=== PATIENT | male | born 1980 | race Caucasian/White ===

== ENCOUNTER 2017-11-03 07:14 | Emergency (ER) | payer OTHER ==
[~2017-11-03] VITALS: Ht 185.4 cm; Wt 127.3 kg
[2017-11-03 07:19] VITALS: Ht 185.4 cm; Wt 127.3 kg
[2017-11-03] MEDS ORDERED: SEROQUEL50 MG PO (07:20)
[2017-11-03] MEDS ORDERED: BUSPAR10 MG PO (07:20)
[2017-11-03 07:37] LABS: BASOPHILS 0.1 % (0-2); EOSINOPHILS 0.1 % (0-7); HEMOGLOBIN 15.1 g/dL (13.5-17.5); IMMATURE GRANULOCYTES 0.3 % (0-5); LYMPHOCYTES 9.7 % (15-50); MCH 30.8 pg (26.0-34.0); MCV 85.5 fL (80.0-100.0); MEAN PLATELET VOLUME 10.4 fL (7.4-10.4); MONOCYTES 4.3 % (2-11); NEUTROPHILS 85.5 % (40-80); PLATELET COUNT 226 10x3/uL (130-400); RBC 4.91 10x6/uL (4.20-6.10); WBC 13.8 10x3/uL (4.8-10.8)
[2017-11-03 07:38] LABS: APPEARANCE CLEAR (CLEAR); BILIRUBIN NEGATIVE (NEGATIVE); COLOR YELLOW (YELLOW); GLUCOSE 50 mg/dL (NEGATIVE); KETONE NEGATIVE (NEGATIVE); NITRITE NEGATIVE (NEGATIVE); PH 6.5 (5.0-6.0); PROTEIN NEGATIVE (NEGATIVE); UROBILINOGEN NORMAL (NORMAL)
[2017-11-03 07:43] LABS: BACTERIA FEW /hpf (NONE SEEN); EPITHELIAL CELLS OCC /hpf (0-5); WHITE CELLS - URINE 0-5 /hpf (0-5)
[2017-11-03 07:44] LABS: HYALINE CAST RARE /lpf (NONE SEEN)
[2017-11-03 07:47] LABS: UDS - AMPHET NEGATIVE QUAL (NEGATIVE); UDS - BARB NEGATIVE QUAL (NEGATIVE); UDS - BENZO NEGATIVE QUAL (NEGATIVE); UDS - COCAINE POSITIVE QUAL (NEGATIVE); UDS - OPIATE NEGATIVE QUAL (NEGATIVE); UDS - PCP NEGATIVE QUAL (NEGATIVE); UDS - THC NEGATIVE QUAL (NEGATIVE)
[2017-11-03 07:56] LABS: ALBUMIN 4.6 g/dL (3.4-5.0); ALKALINE PHOSPHATASE 85 U/L (46-116); ALT (SGPT) 32 U/L (10-68); BILIRUBIN - TOTAL 0.55 mg/dL (0.2-1.3); CALC OSMOLALITY 285 mosm/kg (275-300); CARBON DIOXIDE 28.9 mmol/L (21.0-32.0); CHLORIDE - SERUM 104 mmol/L (98-107); CREATININE - SERUM 0.9 mg/dL (0.6-1.3); GLUCOSE 98 mg/dL (74-106); POTASSIUM - SERUM 3.5 mmol/L (3.5-5.1); PROTEIN - SERUM 8.3 g/dL (6.4-8.2); SODIUM 143 mmol/L (136-145); UREA NITROGEN 16 mg/dL (7-18); eGFR NON AFRICAN AMERICAN > 90 mL/min (90-120)
[2017-11-03 08:11] VITALS: BP 134/84
[2017-11-11 14:38] VITALS: Ht 185.4 cm; Wt 127.3 kg
== END 2017-11-05 06:18 ==
LOC: D.ER 07:14
PROVIDERS: Family Medicine
DX: R45.851 Suicidal ideations (principal); F31.9 Bipolar disorder, unspecified; F14.10 Cocaine abuse, uncomplicated

== ENCOUNTER 2017-11-11 05:47 | Inpatient (IN) | payer OTHER ==
[~2017-11-11] VITALS: Ht 185.4 cm; Wt 101.8 kg
[~2017-11-11 05:47] MED LIST: BUSPAR10 MG PO; SEROQUEL50 MG PO
[2017-11-11 06:00] LABS: BASOPHILS 0.2 % (0-2); EOSINOPHILS 0.1 % (0-7); HEMATOCRIT 46.5 % (42.0-54.0); IMMATURE GRANULOCYTES 0.3 % (0-5); LYMPHOCYTES 15.9 % (15-50); MCH 30.9 pg (26.0-34.0); MCHC 36.6 g/dL (31.0-37.0); MCV 84.5 fL (80.0-100.0); MEAN PLATELET VOLUME 10.2 fL (7.4-10.4); MONOCYTES 9.4 % (2-11); NEUTROPHILS 74.1 % (40-80); PLATELET COUNT 244 10x3/uL (130-400); RDW 12.9 % (11.5-14.5); WBC 15.5 10x3/uL (4.8-10.8)
[2017-11-11 06:18] LABS: ALBUMIN 5.3 g/dL (3.4-5.0); ALKALINE PHOSPHATASE 83 U/L (46-116); ALT (SGPT) 45 U/L (10-68); CALC OSMOLALITY 293 mosm/kg (275-300); CALCIUM 9.4 mg/dL (8.5-10.1); CHLORIDE - SERUM 99 mmol/L (98-107); CREATININE - SERUM 3.6 mg/dL (0.6-1.3); GLUCOSE 117 mg/dL (74-106); POTASSIUM - SERUM 3.5 mmol/L (3.5-5.1); PROTEIN - SERUM 9.3 g/dL (6.4-8.2); SODIUM 141 mmol/L (136-145); UREA NITROGEN 47 mg/dL (7-18); eGFR NON AFRICAN AMERICAN 21 mL/min (90-120)
[2017-11-11 06:39] LABS: CREATINE KINASE 635 UL (21-232)
[2017-11-11 06:44] LABS: CKMB 8.2 U/L (0.0-3.6)
[2017-11-11 07:07] LABS: UDS - AMPHET POSITIVE QUAL (NEGATIVE); UDS - BARB NEGATIVE QUAL (NEGATIVE); UDS - BENZO NEGATIVE QUAL (NEGATIVE); UDS - COCAINE POSITIVE QUAL (NEGATIVE); UDS - OPIATE NEGATIVE QUAL (NEGATIVE); UDS - PCP NEGATIVE QUAL (NEGATIVE); UDS - THC NEGATIVE QUAL (NEGATIVE)
[2017-11-11 07:19] LABS: APPEARANCE CLOUDY (CLEAR); BILIRUBIN NEGATIVE (NEGATIVE); COLOR DK YELLOW (YELLOW); GLUCOSE NEGATIVE (NEGATIVE); KETONE SMALL mg/dL (NEGATIVE); NITRITE NEGATIVE (NEGATIVE); PROTEIN 3+ mg/dL (NEGATIVE); SPECIFIC GRAVITY 1.025 (1.005-1.020); UROBILINOGEN NORMAL (NORMAL); WHITE CELLS - URINE 0-5 /hpf (0-5)
[2017-11-11 07:20] LABS: BACTERIA FEW /hpf (NONE SEEN); EPITHELIAL CELLS 0-5 /hpf (0-5); MUCUS <1+ /lpf (NONE SEEN); SPERMATOZOA RARE /hpf (NONE SEEN)
[2017-11-11 08:00] VITALS: BP 151/101
[2017-11-11 08:45] LABS: PHOSPHOROUS 6.1 mg/dL (2.5-4.9)
[2017-11-11 09:00] VITALS: BP 163/92
[2017-11-11 14:15] VITALS: BP 163/92; BMI 29.6
[2017-11-11 14:38] VITALS: BP 163/92; Ht 185.4 cm; Wt 101.8 kg
[2017-11-11 21:56] VITALS: BP 106/66
[2017-11-12 05:42] VITALS: BP 105/60
[2017-11-12 05:44] LABS: BASOPHILS 0.6 % (0-2); EOSINOPHILS 2.2 % (0-7); HEMATOCRIT 40.8 % (42.0-54.0); HEMOGLOBIN 14.4 g/dL (13.5-17.5); IMMATURE GRANULOCYTES 0.2 % (0-5); LYMPHOCYTES 24.2 % (15-50); MCH 30.3 pg (26.0-34.0); MCHC 35.3 g/dL (31.0-37.0); MCV 85.9 fL (80.0-100.0); MEAN PLATELET VOLUME 10.2 fL (7.4-10.4); MONOCYTES 8.5 % (2-11); NEUTROPHILS 64.3 % (40-80); RBC 4.75 10x6/uL (4.20-6.10); RDW 12.8 % (11.5-14.5)
[2017-11-12 06:22] LABS: PLATELET COUNT 192 10x3/uL (130-400)
[2017-11-12 06:42] LABS: ALKALINE PHOSPHATASE 65 U/L (46-116); ALT (SGPT) 35 U/L (10-68); BILIRUBIN - TOTAL 0.92 mg/dL (0.2-1.3); CALCIUM 7.8 mg/dL (8.5-10.1); CARBON DIOXIDE 26.3 mmol/L (21.0-32.0); CHLORIDE - SERUM 106 mmol/L (98-107); GLUCOSE 104 mg/dL (74-106); MAGNESIUM - SERUM 1.8 mg/dL (1.8-2.4); POTASSIUM - SERUM 3.6 mmol/L (3.5-5.1); SODIUM 139 mmol/L (136-145)
[2017-11-12 06:45] LABS: ALBUMIN 3.3 g/dL (3.4-5.0); CALC OSMOLALITY 281 mosm/kg (275-300); CREATINE KINASE 262 UL (21-232); PROTEIN - SERUM 6.5 g/dL (6.4-8.2); UREA NITROGEN 24 mg/dL (7-18); eGFR NON AFRICAN AMERICAN 90 mL/min (90-120)
[2017-11-12 06:46] LABS: CKMB 3.1 U/L (0.0-3.6)
[2017-11-12 08:47] VITALS: BP 106/57
[2017-11-12 11:26] VITALS: BP 122/70
[2017-11-12 15:10] VITALS: BP 126/72
== END 2017-11-12 15:29 | disposition home or self-care (01) | DRG 683 ==
LOC: D.ER 05:47 → D.EDHOLD 09:05 → D.M2 09:05
PROVIDERS: Emergency Medicine; Family Medicine
DX: N17.9 Acute kidney failure, unspecified (principal); M62.82 Rhabdomyolysis; F15.10 Other stimulant abuse, uncomplicated; F14.10 Cocaine abuse, uncomplicated

== ENCOUNTER 2018-11-10 16:29 | Emergency (ER) | payer MEDICAID ==
[~2018-11-10] VITALS: Ht 180.3 cm; Wt 90.9 kg
[2018-11-10 16:36] VITALS: Ht 180.3 cm; Wt 90.9 kg
[2018-11-10 17:11] LABS: BASOPHILS 0.3 % (0-2); EOSINOPHILS 0.2 % (0-7); HEMOGLOBIN 13.5 g/dL (13.5-17.5); IMMATURE GRANULOCYTES 0.4 % (0-5); LYMPHOCYTES 8.8 % (15-50); MCH 29.5 pg (26.0-34.0); MCHC 34.6 g/dL (31.0-37.0); MCV 85.3 fL (80.0-100.0); MEAN PLATELET VOLUME 9.1 fL (7.4-10.4); MONOCYTES 7.7 % (2-11); NEUTROPHILS 82.6 % (40-80); PLATELET COUNT 226 10x3/uL (130-400); RBC 4.57 10x6/uL (4.20-6.10); WBC 15.7 10x3/uL (4.8-10.8)
--- NOTE | 2018-11-10 17:31 | NUR ---
PT ADMITS TO ATTEMPTING TO HARM SELF 10 YEARS AGO BUT VEHEMENTLY DENIES ANY DESIRE TO HARM SELF AT THIS TIME. PATIENT STATES,"THAT WAS 10 YEARS AGO. I LOVE MYSELF NOW." DR AQUINO NOTIFIED AND REVIEWED PT'S BEHAVIOR AND ASSESSMENT RESULTS. PT IS A LOW RISK PER DR AQUINO. DR AQUINO STATED TO GIVE RESOURCES TO PT AT TIME OF DISCHARGE. NO FURTHER ORDERS AT THIS TIME. RESOURCES REVIEWED WITH PT AND HE VERBALIZED UNDERSTANDING.
[2018-11-10 17:34] LABS: ALBUMIN 4.4 g/dL (3.4-5.0); ANION GAP 18.8 mmol/L (8-16); BILIRUBIN - TOTAL 1.07 mg/dL (0.2-1.3); CALCIUM 9.2 mg/dL (8.5-10.1); CARBON DIOXIDE 24.5 mmol/L (21.0-32.0); CREATININE - SERUM 1.5 mg/dL (0.6-1.3); POTASSIUM - SERUM 3.3 mmol/L (3.5-5.1); PROTEIN - SERUM 8.2 g/dL (6.4-8.2)
[2018-11-10 19:34] LABS: APPEARANCE CLEAR (CLEAR); COLOR YELLOW (YELLOW)
[2018-11-10 19:35] LABS: BILIRUBIN NEGATIVE (NEGATIVE); GLUCOSE NEGATIVE (NEGATIVE); KETONE NEGATIVE (NEGATIVE); NITRITE NEGATIVE (NEGATIVE); PROTEIN TRACE mg/dL (NEGATIVE); SPECIFIC GRAVITY 1.015 (1.005-1.020); UROBILINOGEN NORMAL (NORMAL)
[2018-11-10 19:37] LABS: RED CELLS - URINE 0-5 /hpf (0-5); WHITE CELLS - URINE OCC /hpf (0-5)
[2018-11-10 22:00] VITALS: BP 132/91
== END 2018-11-10 22:00 | disposition home or self-care (01) ==
LOC: D.ER 16:29
PROVIDERS: Emergency Medicine
DX: T67.5XXA Heat exhaustion, unspecified, initial encounter (principal); X58.XXXA Exposure to other specified factors, initial encounter; Y93.89 Activity, other specified; Y92.89 Other specified places as the place of occurrence of the external cause; R79.89 Other specified abnormal findings of blood chemistry; E86.0 Dehydration

== ENCOUNTER 2019-05-14 10:47 | Inpatient (IN) | payer OTHER ==
[~2019-05-14] VITALS: Ht 180.3 cm; Wt 89.7 kg
[2019-05-14 11:51] LABS: BASOPHILS 0.3 % (0-2); EOSINOPHILS 1.2 % (0-7); HEMOGLOBIN 13.3 g/dL (13.5-17.5); IMMATURE GRANULOCYTES 0.3 % (0-5); LYMPHOCYTES 6.9 % (15-50); MCH 29.3 pg (26.0-34.0); MCHC 33.3 g/dL (31.0-37.0); MCV 88.1 fL (80.0-100.0); NEUTROPHILS 85.3 % (40-80); PLATELET COUNT 250 10x3/uL (130-400); RBC 4.54 10x6/uL (4.20-6.10); RDW 13.6 % (11.5-14.5); WBC 17.7 10x3/uL (4.8-10.8)
[2019-05-14 12:01] LABS: INR 1.02 (0.85-1.17); PROTIME 13.4 SECONDS (11.6-15.0)
[2019-05-14 12:04] LABS: CALC OSMOLALITY 276 mosm/kg (275-300); CARBON DIOXIDE 32.6 mmol/L (21.0-32.0); CHLORIDE - SERUM 98 mmol/L (98-107); GLUCOSE 110 mg/dL (74-106); POTASSIUM - SERUM 3.7 mmol/L (3.5-5.1); SODIUM 138 mmol/L (136-145); UREA NITROGEN 12 mg/dL (7-18); eGFR NON AFRICAN AMERICAN 89 mL/min (90-120)
[2019-05-14 12:13] LABS: ALBUMIN 3.3 g/dL (3.4-5.0); ALKALINE PHOSPHATASE 90 U/L (30-120); ALT (SGPT) 16 U/L (10-68); BILIRUBIN - TOTAL 0.85 mg/dL (0.2-1.3); C-REACTIVE PROTEIN 13.4 mg/dL (0.0-0.9); PROTEIN - SERUM 7.2 g/dL (6.4-8.2)
[2019-05-14 12:14] LABS: TROPONIN-I < 0.017 ng/mL (0.000-0.060)
--- NOTE | 2019-05-14 13:06 | NUR ---
PT ARRIVED VIA STRECHER FROM ER. DENIES NEEDS OR PAIN AT THIS TIME. VSS EXCEPT 100.1 FEVER WHICH HAS ALREADY BEEN TREATED BY ER NURSE. DRESSING TO RIGHT AC, CDI. AXO X4. PT ORIENTED TO ROOM. RR EVEN AND UNLABORED. BED IN LOWEST POSITION. CALL LIGHT WITHIN REACH. WILL CONTINUE TO MONITOR.
[2019-05-14 13:13] VITALS: BP 176/107; BMI 27.9
[2019-05-14 13:36] VITALS: BP 167/95
[2019-05-14 16:00] VITALS: BP 159/81
--- NOTE | 2019-05-14 16:13 | NUR ---
SPOKE WITH PTs PARTS IDENTIFICATION TECHNICIAN PER PT REQUEST. MADE AWARE THAT PT WAS IN HOSPITAL.
--- NOTE | 2019-05-14 17:00 | NUR ---
DRESSING CAME OFF OF RIGHT AC. REDRESSED WITH KURLEX AND 4X4, CDI. DENIES FURTHER NEEDS OR PAIN AT THIS TIME
[2019-05-14 18:52] LABS: APTT 33.8 SECONDS (22.8-39.4)
[2019-05-14 18:53] LABS: D-DIMER-QUANTITATIVE 1.49 ug/mLFEU (0.20-0.54)
--- NOTE | 2019-05-14 19:20 | NUR ---
REPORT RECEIVED, WILL CONTINUE POC. PATIENT IS AAOX4, LYING IN SEMI-FOWLERS POSITION. NO S/S OF DISTRESS OBSERVED, RR EVEN AND UNLABORED ON ROOM AIR. PIV TO LT FA, PATENT, DRSG C/D/I. PATIENT DENIES NEEDS AT THIS TIME. CL IN REACH, BED LOCKED AND LOWERED. WILL CTM.
[2019-05-14 19:21] LABS: CREATINE KINASE 26 UL (21-232); MAGNESIUM - SERUM 1.7 mg/dL (1.8-2.4)
[2019-05-14 19:22] LABS: TROPONIN-I < 0.017 ng/mL (0.000-0.060)
[2019-05-14 21:00] VITALS: BP 148/79
--- NOTE | 2019-05-15 00:29 | NUR ---
PT REQUESTED JUICE, APPLE JUICE GIVEN. LAB AT BEDSIDE DRAWING CARDIAC ENZYMES. HUNG IV ABX. PATIENT DENIES FURTHER NEEDS AT THIS TIME.
[2019-05-15 00:45] LABS: CKMB 0.2 U/L (0.0-3.6); CREATINE KINASE 22 UL (21-232); TROPONIN-I < 0.017 ng/mL (0.000-0.060)
[2019-05-15 01:18] VITALS: BP 154/80
--- NOTE | 2019-05-15 03:46 | NUR ---
I have reviewed this patient and I concur with the Shift Assessment completed by the Licensed Practical Nurse today this shift.
[2019-05-15 04:42] VITALS: BP 138/80
[2019-05-15 05:14] LABS: BASOPHILS 0.4 % (0-2); HEMATOCRIT 38.3 % (42.0-54.0); HEMOGLOBIN 12.6 g/dL (13.5-17.5); IMMATURE GRANULOCYTES 0.2 % (0-5); LYMPHOCYTES 11.6 % (15-50); MCHC 32.9 g/dL (31.0-37.0); MCV 88.2 fL (80.0-100.0); MEAN PLATELET VOLUME 9.2 fL (7.4-10.4); MONOCYTES 6.9 % (2-11); NEUTROPHILS 76.9 % (40-80); PLATELET COUNT 218 10x3/uL (130-400); RBC 4.34 10x6/uL (4.20-6.10); RDW 13.5 % (11.5-14.5); WBC 13.4 10x3/uL (4.8-10.8)
[2019-05-15 05:54] LABS: ALBUMIN 2.6 g/dL (3.4-5.0); ALKALINE PHOSPHATASE 68 U/L (30-120); ALT (SGPT) 14 U/L (10-68); BILIRUBIN - TOTAL 0.63 mg/dL (0.2-1.3); CALC OSMOLALITY 275 mosm/kg (275-300); CALCIUM 8.3 mg/dL (8.5-10.1); CARBON DIOXIDE 29.6 mmol/L (21.0-32.0); CHLORIDE - SERUM 102 mmol/L (98-107); CKMB 0.2 U/L (0.0-3.6); CREATINE KINASE 23 UL (21-232); CREATININE - SERUM 0.9 mg/dL (0.6-1.3); GLUCOSE 111 mg/dL (74-106); POTASSIUM - SERUM 3.8 mmol/L (3.5-5.1); PROTEIN - SERUM 6.6 g/dL (6.4-8.2); SODIUM 138 mmol/L (136-145); UREA NITROGEN 11 mg/dL (7-18); eGFR NON AFRICAN AMERICAN > 90 mL/min (90-120)
[2019-05-15 06:14] LABS: TROPONIN-I < 0.017 ng/mL (0.000-0.060)
[2019-05-15 08:00] VITALS: BP 143/79
[2019-05-15 10:47] LABS: APPEARANCE CLEAR (CLEAR); BILIRUBIN NEGATIVE (NEGATIVE); COLOR STRAW (YELLOW); GLUCOSE NEGATIVE (NEGATIVE); KETONE NEGATIVE (NEGATIVE); NITRITE NEGATIVE (NEGATIVE); PROTEIN NEGATIVE (NEGATIVE); SPECIFIC GRAVITY 1.005 (1.005-1.020); UROBILINOGEN NORMAL (NORMAL)
--- NOTE | 2019-05-15 11:22 | NUR ---
PT EDUCATION GIVEN TO PT ON PURPOSE OF SCD. PT REFUSES SCD'S AT THIS TIME. WILL CONTINUE TO MONITOR.
[2019-05-15 12:00] VITALS: BP 129/75
[2019-05-15 16:00] VITALS: BP 184/77
--- NOTE | 2019-05-15 16:47 | NUR ---
RESTS IN BED WITH CALL LIGHT IN REACH. IV PATENT. WILL MONITOR NEEDS.
--- NOTE | 2019-05-15 17:51 | MORECARE ---
CASE MANAGEMENT DISCHARGE SUMMARY PATIENT: RAUL VARGAS UNIT: [id number] ADM DATE: 05/14/19 AGE: 39 : 82 SEX: M ROOM/BED: D.1437 AUTHOR: ALLEN,DOC PHYSICIAN: REFERRING PHYSICIAN: PIYUSH REDDY DO DATE OF SERVICE: 05/15/19 Discharge Plan Patient Name: RAUL VARGAS Facility: [facility]:[place] : 1980 Planned Disposition: Home Anticipated Discharge Date: 05/16/19 Discharge Date: Expected LOS: 2 Initial Reviewer: [email or web address] Initial Review Date: 05/08/2019 Generated: 05/15/19 6:51 pm Comments DCP- Discharge Planning Updated by [email or web address]: Tom Tiwari on 05/15/19 4:[address] Patient Name: RAUL VARGAS Admission Status: ER Accout number: [id number] Admission Date: 05-14-2019 : 1980 Admission Diagnosis: Attending: PIYUSH REDDY Current LOS: 1 Anticipated DC Date: 05-16-2019 Planned Disposition: Home Primary Insurance: NOVASYS MANAGED MEDICAID Discharge Planning Comments: CM RECEIVED ORDER THAT PT IS HOMELESS. CM MET WITH PT IN ROOM TO DISCUSS DISCHARGE PLANNING AND NEEDS. PT REPORTS LIVING ON THE "STREETS" AND IS INDEPENDENT IN HIS CARE. PT HAS NO MEDICAL EQUIPMENT AND NO PROVIDER PREFERENCE. PT IS AWARE OF LOCATION OF [facility] AND THE SERVICES. PT IS AWARE OF SERVICES AND USES THE [facility] AND [facility] FOR FOOD. PT HAS NO INCOME. PT REPORTS BEING ON [place] AND IS WAITING ON BED AT THE [facility] DUE TO [facility] VIOLATION FOR FAILURE TO REPORT. PT REPORTS TO [facility] COPPER DAILY AND THEY ARE AWARE OF PT'S BEING IN HOSPITAL NOW. CM DISCUSSED AVAILABILITY OF HOME HEALTH, REHAB SERVICES AND MEDICAL EQUIPMENT. PT DENIES DISCHARGE NEEDS, REPORTS NEEDING NO ASSISTANCE AT DISCHARGE. CM OFFERED PT BUS PASS HE HAS ALL OF HIS BELONGINGS AND NEEDS TO GET BACK TO [facility]. PT ACCEPTED. CM PROVIDED PT WITH BUS PASS AND CITY BUS ROUTE MAP. PT WILL RETURN TO HOMELESSNESS AT DISCHARGE. HE IS AWARE OF [facility] INTERMEDIATE IN [place] AND HAS AN IDENTIFICATION TO GAIN ACCESS TO INTERMEDIATE. CM EDUCATED PT ON NEEDING TO BE SOBER UPON ARRIVAL FOR [place] IN EVENINGS. PT HAS BUS PASS PROVIDED BY [employer]. Pals Specialist: Tom Tiwari DCPIA - Discharge Planning Initial Assessment Updated by [id number]: Tom Tiwari on 05/15/19 5:44 pm * Is the patient Alert and Oriented? Yes * How many steps to enter\\exit or inside your home? NONE * PCP NONE * Pharmacy [facility] [place] * Preadmission Environment Homeless * Other Environment [address]ETS * Facility Name NONE * ADLs Independent * Equipment None * Other Equipment NO MEDICAL EQUIPMENT PROVIDER PREFERENCE * List name and contact numbers for known caregivers / representatives who currently or will assist patient after discharge: SATISH TYLER, MOTHER, LIVES IN [facility], PHONE NUMBER UNKNOWN * Verbal permission to speak to the caregivers and representatives has been obtained from the patient. N/A * Community resources currently utilized Other * Please name any agencies selected above. [facility] - MANDATORY REPORTING TO [place] [facility] OFFICE * Additional services required to return to the preadmission environment? No * Can the patient safely return to the preadmission environment? Yes * Has this patient been hospitalized within the prior 30 days at any hospital? No Patient Name: RAUL VARGAS Page [phone] at 1751 All edits/amendments must be made on the electronic document DICTATION DATE: 05/15/191750 CAR SUPPLIER: STAN 05/15/191750 RPT#: [id number] IA DATE: STATUS: ADM IN [facility] [address] [place] [address] END OF REPORT
[2019-05-15 20:30] VITALS: BP 124/70
--- NOTE | 2019-05-15 21:15 | NUR ---
PATIENT REQUESTING SHOWER. DRESSING TO RIGHT ARM LOOSE WITH DRAINAGE NOTED. ARM WRAPPED FOR SHOWER. TOLERATED SHOWER WELL. RIGHT ARM CLEANED [facility] WOUND CLEANSER. YELLOW DRAINAGE NOTED DRAINING FROM INCISION. NON ADHERENT DRESSING,4X4 AND BERNY WRAP APPLIED TO RIGHT ARM.NO COMPLAINTS VOICED. IV TO LFA INTACT WITH NO REDNESS OR EDEMA NOTED. CL IN REACH
[2019-05-16 00:30] VITALS: BP 132/58
[2019-05-16 04:30] VITALS: BP 118/69
[2019-05-16 04:58] LABS: BASOPHILS 0.5 % (0-2); EOSINOPHILS 10.3 % (0-7); HEMATOCRIT 35.4 % (42.0-54.0); HEMOGLOBIN 11.4 g/dL (13.5-17.5); IMMATURE GRANULOCYTES 0.3 % (0-5); LYMPHOCYTES 20.7 % (15-50); MCH 28.5 pg (26.0-34.0); MCHC 32.2 g/dL (31.0-37.0); MCV 88.5 fL (80.0-100.0); MEAN PLATELET VOLUME 9.3 fL (7.4-10.4); MONOCYTES 9.1 % (2-11); NEUTROPHILS 59.1 % (40-80); PLATELET COUNT 235 10x3/uL (130-400); RDW 13.4 % (11.5-14.5)
[2019-05-16 05:03] LABS: WBC 7.9 10x3/uL (4.8-10.8)
[2019-05-16 05:23] LABS: CALC OSMOLALITY 280 mosm/kg (275-300); CALCIUM 8.3 mg/dL (8.5-10.1); CARBON DIOXIDE 33.1 mmol/L (21.0-32.0); CHLORIDE - SERUM 104 mmol/L (98-107); CREATININE - SERUM 0.9 mg/dL (0.6-1.3); GLUCOSE 112 mg/dL (74-106); MAGNESIUM - SERUM 2.1 mg/dL (1.8-2.4); POTASSIUM - SERUM 3.7 mmol/L (3.5-5.1); SODIUM 140 mmol/L (136-145); eGFR NON AFRICAN AMERICAN > 90 mL/min (90-120)
[2019-05-16 05:28] LABS: UREA NITROGEN 16 mg/dL (7-18)
--- NOTE | 2019-05-16 06:53 | NUR ---
I have reviewed this patient and I concur with the Shift Assessment completed by the Licensed Practical Nurse today this shift.
[2019-05-16 08:00] VITALS: BP 140/78
[2019-05-16 12:42] VITALS: Ht 180.3 cm; Wt 89.7 kg
--- NOTE | 2019-05-16 13:46 | NUR ---
I have reviewed this patient and I concur with the Shift Assessment completed by the Licensed Practical Nurse today this shift.
[2019-05-16 16:00] VITALS: BP 119/75
--- NOTE | 2019-05-16 19:00 | NUR ---
ALERT AND ORIENTED. LAYING IN LOW FOWLERS POSITION. DENIES PAIN AND DISCOMFORT AT THIS TIME. DRESSING TO THE RIGHT AC/FOREARM AREA. PATIENT STATES "THE SWELLING HAS GONE DOWN A LOT." SIDE BY SIDE COMPARISON OF ARMS AND RIGHT ARM IS SLIGHTLY SWOLLEN TO INSPECTION, WARM TO TOUCH, NO REDNESS NOTED AT THIS TIME. PATIENT HAS A LEFT FOREARM IV THAT IS PATENT AND INFUSING NORMAL SALINE AT 100 ML/HR. SPOKE WITH PATIENT ABOUT PLAN OF CARE THIS EVENING ORDERED BY PHYSICIANS AND UPCOMING MEDICATIONS. PATIENT VERBALIZES UNDERSTANDING. REQUESTS SNACKS AT THIS TIME. PROVIDED. DENIES FURTHER NEEDS AT THIS TIME. CALL LIGHT IN REACH OF PATIENT. CPOC.
[2019-05-16 21:30] VITALS: BP 119/64
[2019-05-17 00:30] VITALS: BP 114/67
--- NOTE | 2019-05-17 01:51 | NUR ---
PATIENT RESTING ON RIGHT SIDE WITH NO SIGNS OR SYMPTOMS OF DISTRESS AT THIS TIME. IV REMAINS PATENT, NON SWOLLEN, AND NO REDNESS AT INSERTION SITE. CALL LIGHT IN REACH. CPOC.
[2019-05-17 04:30] VITALS: BP 96/72
--- NOTE | 2019-05-17 04:36 | NUR ---
I have reviewed this patient and I concur with the Shift Assessment completed by the Licensed Practical Nurse today this shift.
[2019-05-17 04:59] LABS: BASOPHILS 0.6 % (0-2); EOSINOPHILS 11.6 % (0-7); HEMATOCRIT 35.6 % (42.0-54.0); HEMOGLOBIN 11.6 g/dL (13.5-17.5); IMMATURE GRANULOCYTES 0.6 % (0-5); LYMPHOCYTES 27.5 % (15-50); MCH 28.7 pg (26.0-34.0); MCHC 32.6 g/dL (31.0-37.0); MCV 88.1 fL (80.0-100.0); MEAN PLATELET VOLUME 9.2 fL (7.4-10.4); MONOCYTES 7.3 % (2-11); NEUTROPHILS 52.4 % (40-80); PLATELET COUNT 259 10x3/uL (130-400); RBC 4.04 10x6/uL (4.20-6.10); RDW 13.4 % (11.5-14.5); WBC 6.8 10x3/uL (4.8-10.8)
[2019-05-17 05:57] LABS: CALC OSMOLALITY 281 mosm/kg (275-300); CALCIUM 8.5 mg/dL (8.5-10.1); CARBON DIOXIDE 30.9 mmol/L (21.0-32.0); CHLORIDE - SERUM 104 mmol/L (98-107); CREATININE - SERUM 0.9 mg/dL (0.6-1.3); GLUCOSE 105 mg/dL (74-106); MAGNESIUM - SERUM 2.3 mg/dL (1.8-2.4); POTASSIUM - SERUM 3.8 mmol/L (3.5-5.1); SODIUM 141 mmol/L (136-145); UREA NITROGEN 16 mg/dL (7-18); eGFR NON AFRICAN AMERICAN > 90 mL/min (90-120)
[2019-05-17 08:00] VITALS: BP 129/75
[2019-05-17 16:00] VITALS: BP 127/73
[2019-05-17] MEDS ORDERED: SMZ-TMP DS TABL1 TAB PO (16:20)
--- NOTE | 2019-05-18 09:49 | MORECARE ---
CASE MANAGEMENT DISCHARGE SUMMARY PATIENT: RAUL VARGAS UNIT: [id number] ADM DATE: 05/14/19 AGE: 39 : 82 SEX: M ROOM/BED: D.8339 AUTHOR: ALLEN,DOC PHYSICIAN: REFERRING PHYSICIAN: PIYUSH REDDY DO DATE OF SERVICE: 05/18/19 Discharge Plan Patient Name: RAUL VARGAS Facility: [facility]:[place] : 1980 Planned Disposition: Home Anticipated Discharge Date: 05/17/19 Discharge Date: 05/17/2019 Expected LOS: 3 Initial Reviewer: [email or web address] Initial Review Date: 05/08/2019 Generated: 05/18/19 10:48 am Comments DCP- Discharge Planning Updated by [email or web address]: Tom Tiwari on 05/15/19 4:[address] Patient Name: RAUL VARGAS Admission Status: ER Accout number: [id number] Admission Date: 05-14-2019 : 1980 Admission Diagnosis: Attending: PIYUSH REDDY Current LOS: 1 Anticipated DC Date: 05-16-2019 Planned Disposition: Home Primary Insurance: NOVASYS MANAGED MEDICAID Discharge Planning Comments: CM RECEIVED ORDER THAT PT IS HOMELESS. CM MET WITH PT IN ROOM TO DISCUSS DISCHARGE PLANNING AND NEEDS. PT REPORTS LIVING ON THE "STREETS" AND IS INDEPENDENT IN HIS CARE. PT HAS NO MEDICAL EQUIPMENT AND NO PROVIDER PREFERENCE. PT IS AWARE OF [facility] OF [facility] AND [facility] SERVICES. PT IS AWARE OF SERVICES AND USES THE [facility] [employer] FOR FOOD. PT HAS NO INCOME. PT REPORTS BEING ON [place] AND IS WAITING ON BED AT THE [facility] DUE TO [facility] VIOLATION FOR FAILURE TO REPORT. PT REPORTS TO [facility] DENTIST DAILY AND THEY ARE AWARE OF PT'S BEING IN HOSPITAL NOW. CM DISCUSSED AVAILABILITY OF HOME HEALTH, REHAB SERVICES AND MEDICAL EQUIPMENT. PT DENIES DISCHARGE NEEDS, REPORTS NEEDING NO ASSISTANCE AT DISCHARGE. CM OFFERED PT BUS PASS HE HAS ALL OF HIS BELONGINGS AND NEEDS TO GET BACK TO [facility]. PT ACCEPTED. CM PROVIDED PT WITH BUS PASS AND CITY BUS ROUTE MAP. PT WILL RETURN TO HOMELESSNESS AT DISCHARGE. HE IS AWARE OF [facility] IN [place] AND HAS AN IDENTIFICATION TO GAIN ACCESS TO SKILLED NURSING. CM EDUCATED PT ON NEEDING TO BE SOBER UPON ARRIVAL FOR [facility] IN EVENINGS. PT HAS BUS PASS PROVIDED BY [employer]. Bellstand Attendant: Tom Karie DCPIA - Discharge Planning Initial Assessment Updated by [email or web address]: Tom iTwari on 05/15/19 5:44 pm * Is the patient Alert and Oriented? Yes * How many steps to enter\\exit or inside your home? NONE * PCP NONE * Pharmacy [facility] [place] * Preadmission Environment Homeless * Other Environment [address]ETS * Facility Name NONE * ADLs Independent * Equipment None * Other Equipment NO MEDICAL EQUIPMENT PROVIDER PREFERENCE * List name and contact numbers for known caregivers / representatives who currently or will assist patient after discharge: SATISH TYLER, MOTHER, LIVES IN [facility], PHONE NUMBER UNKNOWN * Verbal permission to speak to the caregivers and representatives has been obtained from the patient. N/A * Community resources currently utilized Other * Please name any agencies selected above. [facility] - MANDATORY REPORTING TO [place] [facility] OFFICE * Additional services required to return to the preadmission environment? No * Can the patient safely return to the preadmission environment? Yes * Has this patient been hospitalized within the prior 30 days at any hospital? No Last DP export: 05/15/19 4:51 p Patient Name: RAUL VARGAS Page 49866 at 0949 All edits/amendments must be made on the electronic document DICTATION DATE: 05/18/19947 HAND FINISHER: STAN 05/18/19947 RPT#: [id number] DC DATE:05/17/19 STATUS: DIS IN [place] [id number] [place] [address] END OF REPORT
--- NOTE | 2019-05-18 11:54 | EC ---
PATIENT:RAUL VARGAS DATE OF SERVICE: 05/14/19 SEX: M MEDICAL RECORD: [id number] DATE OF : [birth year] LOCATION:D.M2 D.211 AGE OF PATIENT: 39 ADMISSION DATE: 05/14/19 REFERRING PHYSICIAN: INTERPRETING PHYSICIAN: AVTAR DOS SANTOS MD ECHOCARDIOGRAM REPORT ECHO CHARGES 4 ECHO COMPLETE Date: 05/15/19 CLINICAL DIAGNOSIS: R/O VEG ECHOCARDIOGRAPHIC MEASUREMENTS (adult normal given) AC root (d.<3.7cm) 2.6 cm LV Septum d (<1.2 cm> 1.1 cm Valve Excursion 1.8 cm LV Septum (systole) 1.4 cm Left Atria (s.<4.0cm> 3.0 cm LVPW d(<1.2cm) 1.0 cm RV (d.<2.3cm) 2.9 cm LVPW (sytole) 1.1 cm LV diastole(<5.6CM) 5.8 cm MV E-F(>70mm/sec) cm LV systole 4.1 cm LVOT Diameter 2.1 cm MV exc.(>10mm) cm Est.ejection fraction (50-75%) % DOPPLER: LVIT cm/sec A 68 cm/sec E 90 cm/sec LA cm/sec RVSP 33.3 mmHg LVOT 127 cm/sec AOP1/2T m/s Asc. Ao 147 cm/sec RVOT 74 cm/sec RA cm/sec PA 111 cm/sec AV Gradient Peak 8.7 mmHg AV Mean 4.5 mmHg AV Area 3.1 cm MV Gradient Peak 6.1 mmHg MV Mean 2.4 mmHg MV Area cm COMMENTS: Attractions Associate: Melissa SIDDIQUI Party Plan Sales Unit Sales Leader: 3 Dr. Galvez TAPE# PACS Pericardial Effusion Y DATE OF SERVICE: FINDINGS: 1. Left ventricular chamber size is within normal limits. Left ventricular systolic function is normal at 60%. 2. Left atrium, right atrium, and right ventricular chamber sizes are within normal limits. 3. Valvular structures have normal structure and motion. 4. Doppler interrogation reveals only trace tricuspid regurgitation, no other valvular insufficiency or stenosis and pulmonary systolic pressure estimated at ECHOCARDIOGRAM REPORT [id number] RAUL VARGAS 33 mmHg. 5. No evidence of pericardial effusion or left ventricular thrombus. TRANSINT:[id number] Voice Confirmation ID: [id number] DOCUMENT ID: [id number] AVTAR DOS SANTOS MD at 1154 CC: [id number] DICTATION DATE: 05/15/19 1450 CIVIL RIGHTS REPRESENTATIVE: 05/16/19 0016 DIS IN 05/17/19 [facility] [address] [place] [id number]
== END 2019-05-17 17:41 | disposition home or self-care (01) | DRG 603 ==
LOC: D.ER 10:47 → D.M2 11:49
PROVIDERS: Family Medicine; ADMIT Family Medicine; ATTEND Family Medicine
DX: L03.113 Cellulitis of right upper limb (principal); F17.213 Nicotine dependence, cigarettes, with withdrawal; F15.10 Other stimulant abuse, uncomplicated; F12.10 Cannabis abuse, uncomplicated; D64.9 Anemia, unspecified; F31.9 Bipolar disorder, unspecified; Z59.0 Homelessness; B96.89 Other specified bacterial agents as the cause of diseases classified elsewhere

== ENCOUNTER 2019-05-26 16:33 | Inpatient (IN) | payer SELFPAY ==
[~2019-05-26] VITALS: Ht 180.3 cm; Wt 81.6 kg
--- NOTE | ~2019-05-26 | EC ---
PATIENT:RAUL VARGAS DATE OF SERVICE: 05/26/19 SEX: M MEDICAL RECORD: [id number] DATE OF : [birth year] LOCATION:D. Artie220 AGE OF PATIENT: 39 ADMISSION DATE: 05/26/19 REFERRING PHYSICIAN: INTERPRETING PHYSICIAN: AVTAR KILLIAN MD ECHOCARDIOGRAM REPORT ECHO CHARGES 5 ECHO LIMITED Date: 05/28/19 CLINICAL DIAGNOSIS: REASSESS FOR VEGATATION ECHOCARDIOGRAPHIC MEASUREMENTS (adult normal given) AC root (d.<3.7cm) cm LV Septum d (<1.2 cm> cm Valve Excursion cm LV Septum (systole) cm Left Atria (s.<4.0cm> cm LVPW d(<1.2cm) cm RV (d.<2.3cm) cm LVPW (sytole) cm LV diastole(<5.6CM) cm MV E-F(>70mm/sec) cm LV systole cm LVOT Diameter cm MV exc.(>10mm) cm Est.ejection fraction (50-75%) % DOPPLER: LVIT cm/sec A cm/sec E cm/sec LA cm/sec RVSP mmHg LVOT cm/sec AOP1/2T m/s Asc. Ao cm/sec RVOT cm/sec RA cm/sec PA cm/sec AV Gradient Peak mmHg AV Mean mmHg AV Area cm MV Gradient Peak mmHg MV Mean mmHg MV Area cm COMMENTS: Shotweld Operator: Vincent TONY Catalyst Plant Supervisor: 1 Dr. Killian TAPE# PACS Pericardial Effusion N DATE OF SERVICE: LIMITED ECHO FOR EJECTION FRACTION FINDINGS: 1. Left ventricular chamber size is within normal limits. Left ventricular systolic function is preserved at 60%. TRANSINT:[id number] Voice Confirmation ID: [id number] DOCUMENT ID: [id number] ECHOCARDIOGRAM REPORT [id number] SAMRAUL AVTAR KILLIAN MD CC: [id number] DICTATION DATE: 05/29/19 1048 CLOCK REPAIRER: 05/29/19 1342 DIS IN 05/28/19 [place] [address] [facility] [place] [address]
[~2019-05-26 16:33] MED LIST changes: +SMZ-TMP DS TABL1 TAB PO
[2019-05-26 18:22] LABS: BASOPHILS 0.2 % (0-2); EOSINOPHILS 2.9 % (0-7); HEMATOCRIT 38.8 % (42.0-54.0); HEMOGLOBIN 13.1 g/dL (13.5-17.5); IMMATURE GRANULOCYTES 0.4 % (0-5); LYMPHOCYTES 5.7 % (15-50); MCHC 33.8 g/dL (31.0-37.0); MCV 85.8 fL (80.0-100.0); MEAN PLATELET VOLUME 8.8 fL (7.4-10.4); MONOCYTES 2.3 % (2-11); NEUTROPHILS 88.5 % (40-80); RBC 4.52 10x6/uL (4.20-6.10); RDW 13.7 % (11.5-14.5); WBC 14.5 10x3/uL (4.8-10.8)
[2019-05-26 18:24] LABS: PLATELET COUNT 336 10x3/uL (130-400)
[2019-05-26 18:31] LABS: CALC OSMOLALITY 277 mosm/kg (275-300); CALCIUM 8.9 mg/dL (8.5-10.1); CARBON DIOXIDE 26.6 mmol/L (21.0-32.0); CHLORIDE - SERUM 103 mmol/L (98-107); CREATININE - SERUM 0.9 mg/dL (0.6-1.3); GLUCOSE 91 mg/dL (74-106); POTASSIUM - SERUM 3.6 mmol/L (3.5-5.1); SODIUM 138 mmol/L (136-145); UREA NITROGEN 18 mg/dL (7-18); eGFR NON AFRICAN AMERICAN > 90 mL/min (90-120)
[2019-05-26 18:39] LABS: ALBUMIN 3.7 g/dL (3.4-5.0); ALKALINE PHOSPHATASE 82 U/L (30-120); ALT (SGPT) 28 U/L (10-68); AMYLASE - SERUM 31 U/L (25-115); BILIRUBIN - TOTAL 0.97 mg/dL (0.2-1.3); LIPASE 54 U/L (73-393); PROTEIN - SERUM 7.5 g/dL (6.4-8.2); TROPONIN-I < 0.017 ng/mL (0.000-0.060)
--- NOTE | 2019-05-26 19:31 | NUR ---
PT LYING SUPING IN BED. NO ACUTE DISTRESS NOTED. PT AROUSES TO VERBAL STIMULI. NO COMPLAINTS VERBALIZED AT THIS TIME.
[2019-05-26 20:01] LABS: BILIRUBIN NEGATIVE (NEGATIVE); GLUCOSE NEGATIVE (NEGATIVE); KETONE NEGATIVE (NEGATIVE); NITRITE NEGATIVE (NEGATIVE); UROBILINOGEN NORMAL (NORMAL)
[2019-05-26 20:03] LABS: BACTERIA MODERATE /hpf (NEGATIVE); RED CELLS - URINE 0-5 /hpf (0-5)
[2019-05-26 20:44] LABS: UDS - AMPHET POSITIVE QUAL (NEGATIVE); UDS - BARB NEGATIVE QUAL (NEGATIVE); UDS - BENZO NEGATIVE QUAL (NEGATIVE); UDS - COCAINE NEGATIVE QUAL (NEGATIVE); UDS - OPIATE NEGATIVE QUAL (NEGATIVE); UDS - PCP NEGATIVE QUAL (NEGATIVE); UDS - THC POSITIVE QUAL (NEGATIVE)
--- NOTE | 2019-05-26 21:42 | NUR ---
PT LYING LEFT LATERAL SIDE IN BED. PT HAS NO COMPLAINTS AT THIS TIME. PT PROVIDED WITH A BLANKET AT REQUEST. WILL CONTINUE TO MONITOR.
[2019-05-26 23:24] VITALS: BP 135/72; BMI 25.1
[2019-05-27] VITALS: BP 135/72
[2019-05-27 04:00] VITALS: BP 138/81
[2019-05-27 04:33] LABS: BASOPHILS 0.2 % (0-2); EOSINOPHILS 4.1 % (0-7); HEMATOCRIT 38.2 % (42.0-54.0); HEMOGLOBIN 12.6 g/dL (13.5-17.5); IMMATURE GRANULOCYTES 0.2 % (0-5); LYMPHOCYTES 9.6 % (15-50); MCH 28.8 pg (26.0-34.0); MCV 87.4 fL (80.0-100.0); MEAN PLATELET VOLUME 9.1 fL (7.4-10.4); MONOCYTES 3.7 % (2-11); NEUTROPHILS 82.2 % (40-80); PLATELET COUNT 320 10x3/uL (130-400); RBC 4.37 10x6/uL (4.20-6.10); RDW 13.9 % (11.5-14.5)
[2019-05-27 04:48] LABS: WBC 8.9 10x3/uL (4.8-10.8)
[2019-05-27 04:52] LABS: ALBUMIN 3.3 g/dL (3.4-5.0); ALKALINE PHOSPHATASE 82 U/L (30-120); ALT (SGPT) 24 U/L (10-68); BILIRUBIN - TOTAL 0.96 mg/dL (0.2-1.3); CALC OSMOLALITY 279 mosm/kg (275-300); CALCIUM 8.5 mg/dL (8.5-10.1); CARBON DIOXIDE 28.6 mmol/L (21.0-32.0); CHLORIDE - SERUM 103 mmol/L (98-107); CREATININE - SERUM 0.9 mg/dL (0.6-1.3); GLUCOSE 93 mg/dL (74-106); POTASSIUM - SERUM 3.4 mmol/L (3.5-5.1); PROTEIN - SERUM 6.9 g/dL (6.4-8.2); SODIUM 140 mmol/L (136-145); UREA NITROGEN 16 mg/dL (7-18); eGFR NON AFRICAN AMERICAN > 90 mL/min (90-120)
[2019-05-27 05:42] LABS: % SATURATION 10 % (15-55); IRON 32 ug/dl (35-150); TOTAL IRON BIND CAPACITY 294 ug/dl (260-445); UNSAT IRON BIND CAPACITY 262 ug/dl (150-375)
[2019-05-27 06:09] LABS: MAGNESIUM - SERUM 1.7 mg/dL (1.8-2.4); PHOSPHOROUS 3.3 mg/dL (2.5-4.9)
--- NOTE | 2019-05-27 07:57 | NUR ---
RESTING IN BED, NO DISTRESS NOTED, C/O LOOSE STOOL, BOWEL SOUNDS +, CONT TO MONITOR
[2019-05-27 09:50] VITALS: BMI 25.1
[2019-05-27 09:53] VITALS: BP 131/83
--- NOTE | 2019-05-27 11:00 | NUR ---
LARGE RUNNY STOOL OVER BED AND PT, CONT TO MONITOR
--- NOTE | 2019-05-27 12:01 | NUR ---
PT LOOKING FOR HAT AND PERSONAL BELONGINGS, CALL PLACED TO ER, UNABLE TO LOCATE AT TIME
[2019-05-27 13:11] VITALS: BP 142/83
[2019-05-27 16:25] VITALS: Ht 180.3 cm; Wt 81.6 kg
[2019-05-27 17:02] VITALS: BP 140/84
[2019-05-27 20:00] VITALS: BP 120/74
--- NOTE | 2019-05-27 20:00 | NUR ---
RESTING IN BED, REPORTS STILL HAVING LIQUID STOOLS, DENIES PAIN AT THIS TIME, SEE SHIFT ASSESSMENT, CALL LIGHT IN REACH
[2019-05-28] VITALS: BP 121/71
[2019-05-28 04:00] VITALS: BP 119/61
[2019-05-28 05:53] LABS: BASOPHILS 0.5 % (0-2); EOSINOPHILS 9.1 % (0-7); HEMATOCRIT 36.8 % (42.0-54.0); IMMATURE GRANULOCYTES 0.2 % (0-5); LYMPHOCYTES 18.5 % (15-50); MCH 28.6 pg (26.0-34.0); MCHC 32.6 g/dL (31.0-37.0); MCV 87.6 fL (80.0-100.0); MEAN PLATELET VOLUME 9.4 fL (7.4-10.4); MONOCYTES 8.4 % (2-11); NEUTROPHILS 63.3 % (40-80); PLATELET COUNT 281 10x3/uL (130-400); RDW 13.8 % (11.5-14.5)
[2019-05-28 06:04] LABS: WBC 4.1 10x3/uL (4.8-10.8)
[2019-05-28 06:19] LABS: CALC OSMOLALITY 275 mosm/kg (275-300); CARBON DIOXIDE 27.1 mmol/L (21.0-32.0); CHLORIDE - SERUM 102 mmol/L (98-107); CREATININE - SERUM 0.9 mg/dL (0.6-1.3); GLUCOSE 108 mg/dL (74-106); MAGNESIUM - SERUM 1.7 mg/dL (1.8-2.4); PHOSPHOROUS 3.2 mg/dL (2.5-4.9); POTASSIUM - SERUM 3.7 mmol/L (3.5-5.1); SODIUM 138 mmol/L (136-145); eGFR NON AFRICAN AMERICAN > 90 mL/min (90-120)
[2019-05-28 06:20] LABS: UREA NITROGEN 9 mg/dL (7-18)
--- NOTE | 2019-05-28 07:30 | NUR ---
PATIENT EASY TO AWAKEN. LAYING ON LEFT SIDE. CL IN REACH. NO FURTHER NEEDS AT THIS TIME. WCTM
[2019-05-28 09:34] VITALS: BP 121/75
[2019-05-28] MEDS ORDERED: LEVAQUIN750 MG PO (10:58)
[2019-05-28] MEDS ORDERED: FLAGYL500 MG PO (10:58)
--- NOTE | 2019-05-28 11:58 | NUR ---
PATIENT GIVEN SOME SALTINE CRACKERS AND A COUPLE OF SPRITES. URINE CUP IN ROOM TO RECIEVE A URINE CULTURE AND HAT IN TOILET TO COLLECT A STOOL SPECIMEN. PATIENT WILL NOTIFY ME WHEN EITHER OF THESE OCCUR. CL IN REACH. NO CO OF PAIN OR NAUSEA AT THIS TIME. WCTM
[2019-05-28 13:04] VITALS: BP 123/73
--- NOTE | 2019-05-28 14:22 | MORECARE ---
CASE MANAGEMENT DISCHARGE SUMMARY PATIENT: RAUL VARGAS UNIT: [id number] ADM DATE: 05/26/19 AGE: 39 : [birth year] SEX: M ROOM/BED: D.2202 AUTHOR: ABHISHEK VILLA PHYSICIAN: REFERRING PHYSICIAN: FORTINO FITZPATRICK MD DATE OF SERVICE: 05/28/19 Discharge Plan Patient Name: RAUL VARGAS Facility: [facility]:[place] : 1980 Planned Disposition: Home Anticipated Discharge Date: Discharge Date: Expected LOS: Initial Reviewer: [email or web address] Initial Review Date: 05/26/2019 Generated: 05/28/19 3:22 pm Comments DCP- Discharge Planning Updated by [email or web address]: Rosa Jernigan on 05/28/19 1:[address] Patient Name: RAUL VARGAS Admission Status: ER Accout number: [id number] Admission Date: 05-26-2019 : 1980 Admission Diagnosis: Attending: ANNI FITZPATRICK Current LOS: 2 Anticipated DC Date: Planned Disposition: Home Primary Insurance: UNINSURED DISCOUNT PLAN Discharge Planning Comments: CM met with patient to complete initial dc planning assessment. CM educated patient on the CM role and verbal consent given by patient to complete assessment. Patient is homeless at the present time. At discharge patient said that he has money at the [employer] at the [employer] on [address]. He would need help getting there, then he will have some money to get to where he is going. CM will provide the taxi cost of 7.25 to get to [facility]. I have gotten that approved by Mary. I will also give him a bus ticket to get to his follow up appointment after his hospitalization. CM will continue to follow and will assist as needed with dc plans/needs. Motor Equipment Commanding Officer: Rosa Jernigan DCPIA - Discharge Planning Initial Assessment Updated by [email or web address]: Rosa Jernigan on 05/28/19 2:17 pm * Pharmacy [facility] * Preadmission Environment Homeless * ADLs Independent Patient Name: RAUL VARGAS Page 38775 at 1422 All edits/amendments must be made on the electronic document DICTATION DATE: 05/28/191421 INDUSTRIAL RELATIONS ANALYST: STAN 05/28/191421 RPT#: [id number] DC DATE: STATUS: ADM IN [facility] [address] [facility] [place] [address] END OF REPORT
--- NOTE | 2019-05-28 15:09 | NUR ---
PATIENT PROVIDED A TURKEY SANDWICH. NO CO OF NAUSEA OR ABD PAIN. CL IN REACH. WCTM
--- NOTE | 2019-05-28 18:13 | NUR ---
IV THERAPY DC'ED FROM LEFT FOREARM. VERBALIZED UNDERSTANDING OF DISCHARGE INSTRUCTIONS.
--- NOTE | 2019-05-29 14:42 | MORECARE ---
CASE MANAGEMENT DISCHARGE SUMMARY PATIENT: RAUL VARGAS UNIT: [id number] ADM DATE: 05/26/19 AGE: 39 : [birth year] SEX: M ROOM/BED: D.2202 AUTHOR: ABHISHEK VILLA PHYSICIAN: REFERRING PHYSICIAN: FORTINO FITZPATRICK MD DATE OF SERVICE: 05/29/19 Discharge Plan Patient Name: RAUL VARGAS Facility: [facility]:[place] : 1980 Planned Disposition: Home Anticipated Discharge Date: Discharge Date: 05/28/2019 Expected LOS: Initial Reviewer: [email or web address] Initial Review Date: 05/26/2019 Generated: 05/29/19 3:42 pm Comments DCP- Discharge Planning Updated by [id number]: Rosa Jernigan on 05/28/19 1:[address] Patient Name: RAUL VARGAS Admission Status: ER Accout number: [id number] Admission Date: 05-26-2019 : 1980 Admission Diagnosis: Attending: ANNI FITZPATRICK Current LOS: 2 Anticipated DC Date: Planned Disposition: Home Primary Insurance: UNINSURED DISCOUNT PLAN Discharge Planning Comments: CM met with patient to complete initial dc planning assessment. CM educated patient on the CM role and verbal consent given by patient to complete assessment. Patient is homeless at the present time. At discharge patient said that he has money at the [employer] at the [employer] on [address]. He would need help getting there, then he will have some money to get to where he is going. CM will provide the taxi cost of 7.25 to get to [facility]. I have gotten that approved by Mary. I will also give him a bus ticket to get to his follow up appointment after his hospitalization. CM will continue to follow and will assist as needed with dc plans/needs. Class A Lineman: Rosa Jernigan DCPIA - Discharge Planning Initial Assessment Updated by [id number]: Rosa Jernigan on 05/28/19 2:17 pm * Pharmacy [facility] * Preadmission Environment Homeless * ADLs Independent Last DP export: 05/28/19 1:22 pm Patient Name: RAUL VARGAS Page [phone] at 1442 All edits/amendments must be made on the electronic document DICTATION DATE: 05/29/191441 AUTOMOTIVE PORTER: STAN 05/29/19 1442 RPT#: [id number] DC DATE:05/28/19 STATUS: DIS IN [facility] [address] [place] [address] END OF REPORT
[2019-06-02 19:08] LABS: OVA + PARASITE EXAM Final report (())
== END 2019-05-28 18:21 | disposition home or self-care (01) | DRG 389 ==
LOC: D.ER 16:33 → D.MS 22:00
PROVIDERS: Family Medicine; ADMIT Emergency Medicine; ATTEND Emergency Medicine
DX: K56.7 Ileus, unspecified (principal); F17.203 Nicotine dependence unspecified, with withdrawal; K52.9 Noninfective gastroenteritis and colitis, unspecified; E86.0 Dehydration; I10 Essential (primary) hypertension; F31.9 Bipolar disorder, unspecified; F19.10 Other psychoactive substance abuse, uncomplicated

== ENCOUNTER 2019-08-22 05:30 | Emergency (ER) | payer SELFPAY ==
[~2019-08-22] VITALS: Ht 180.3 cm; Wt 81.6 kg
[~2019-08-22 05:30] MED LIST changes: +FLAGYL500 MG PO; +LEVAQUIN750 MG PO
[2019-08-22 05:32] VITALS: BP 180/105; Ht 180.3 cm; Wt 81.6 kg
[2019-08-22 06:01] LABS: BASOPHILS 0.1 % (0-2); EOSINOPHILS 2.2 % (0-7); HEMATOCRIT 43.4 % (42.0-54.0); HEMOGLOBIN 14.5 g/dL (13.5-17.5); IMMATURE GRANULOCYTES 0.1 % (0-5); LYMPHOCYTES 7.2 % (15-50); MCH 29.5 pg (26.0-34.0); MCHC 33.4 g/dL (31.0-37.0); MCV 88.2 fL (80.0-100.0); MEAN PLATELET VOLUME 9.3 fL (7.4-10.4); MONOCYTES 7.1 % (2-11); NEUTROPHILS 83.3 % (40-80); RBC 4.92 10x6/uL (4.20-6.10); RDW 13.5 % (11.5-14.5); WBC 13.8 10x3/uL (4.8-10.8)
[2019-08-22 06:02] LABS: PLATELET COUNT 208 10x3/uL (130-400)
[2019-08-22 06:15] LABS: CALC OSMOLALITY 273 mosm/kg (275-300); CARBON DIOXIDE 29.5 mmol/L (21.0-32.0); CHLORIDE - SERUM 101 mmol/L (98-107); CREATININE - SERUM 1.2 mg/dL (0.6-1.3); GLUCOSE 106 mg/dL (74-106); POTASSIUM - SERUM 3.1 mmol/L (3.5-5.1); SODIUM 137 mmol/L (136-145); UREA NITROGEN 12 mg/dL (7-18); eGFR NON AFRICAN AMERICAN 72 mL/min (90-120)
[2019-08-22 06:32] LABS: ALBUMIN 4.1 g/dL (3.4-5.0); ALKALINE PHOSPHATASE 87 U/L (30-120); ALT (SGPT) 24 U/L (10-68); BILIRUBIN - TOTAL 0.91 mg/dL (0.2-1.3); CKMB 4.1 U/L (0.0-3.6); CREATINE KINASE 218 UL (21-232); LIPASE 64 U/L (73-393); MAGNESIUM - SERUM 1.8 mg/dL (1.8-2.4); PROTEIN - SERUM 7.6 g/dL (6.4-8.2); TROPONIN-I < 0.017 ng/mL (0.000-0.060)
== END 2019-08-22 06:48 | disposition left against medical advice (07) ==
LOC: D.ER 05:30
PROVIDERS: Family Medicine
DX: F19.10 Other psychoactive substance abuse, uncomplicated (principal); R10.9 Unspecified abdominal pain; F41.0 Panic disorder [episodic paroxysmal anxiety]; Z53.29 Procedure and treatment not carried out because of patient's decision for other reasons; I10 Essential (primary) hypertension; Z72.0 Tobacco use